=== PATIENT | male | born 1990 | race Caucasian/White ===

== ENCOUNTER 2019-04-29 20:04 | Emergency (ER) | payer OTHER ==
[~2019-04-29] VITALS: Ht 165.1 cm; Wt 77.6 kg
[~2019-04-29 20:04] MED LIST: ADDERALL XR30 MG PO; ALBUTEROL0.09 MG/A2 INH; ALBUTEROL2.5 MG/0.5 INH; ALBUTEROL2.5 MG/0.5 NEB; AMOXICILLIN500 MG PO; ANAPROX DS550 MG PO; BACTRIM DS 8001 TA1 PO; CATAFLAM50 MG PO; CIPROFLOXACIN500 MG PO; CLARITIN-D 10 M1 T21 PO; CLINDAMYCIN HC300 MG PO; CLINDAMYCIN150 MG PO; CYCLOBENZAPRINE10 MG PO; EES400 MG PO; FIORICET 325 MG1 TAB PO; MEDROL DOSEPAK4 MG PO; MOTRIN600 MG PO; MOTRIN800 MG PO; NAPROSYN500 MG PO; NKHM; PEN-VEE K500 MG PO; PREDNICOT20 MG PO; PROVENTIL0.09 MG/A1 INH; ROBITUSSIN DM 105 ML PO; TESSALON PERLE200 MG PO; TRAMADOL HCL50 MG PO; VENTOLIN H0.09 MG/AC INH; VICODIN ES 7501 TAB PO; Vicodin 5/500 505 MG PO; XANAX0.25 MG PO; ZITHROMAX Z PA250 MG PO; ZITHROMAX250 MG PO; ZOFRAN ODT4 MG SL; ZYRTEC10 MG PO
== END 2019-04-29 22:21 ==
LOC: ED 20:04
DX: S96.912A Strain of unspecified muscle and tendon at ankle and foot level, left foot, initial encounter (principal); Z88.0 Allergy status to penicillin; Z79.899 Other long term (current) drug therapy; W01.0XXA Fall on same level from slipping, tripping and stumbling without subsequent striking against object, initial encounter; Y93.89 Activity, other specified; Y92.89 Other specified places as the place of occurrence of the external cause; Y99.8 Other external cause status

== ENCOUNTER 2021-03-22 17:04 | Emergency (ER) | payer OTHER | END 2021-03-22 17:45 | disposition left against medical advice (07) | LOC: ED 17:04 | DX: Z53.21 Procedure and treatment not carried out due to patient leaving prior to being seen by health care provider (principal) ==